=== PATIENT | female | born 1995 | race Caucasian/White ===

== ENCOUNTER 2016-08-21 16:08 | Emergency (ER) | payer BC, OTHER ==
[2016-08-21 16:14] VITALS: BP 148/91
--- NOTE | 2016-08-21 16:27 | ER Document Report ---
HPI - HPI Patient complains to provider of: Left fifth toe on the bathtub Onset: Just prior to arrival Onset/Duration: Sudden Quality of pain: Throbbing Pain Level: 5 Context: 21-year-old female hit left fifth toe on the bathtub causing increased pain to her fourth and fifth toe extending into the distal metatarsals. She did not know if it was dislocated or broken. Associated Symptoms: None Exacerbated by: Movement Relieved by: Denies Similar symptoms previously: No Recently seen / treated by doctor: No - ROS ROS below otherwise negative: Yes Systems Reviewed and Negative: Yes All other systems reviewed and negative - REPRODUCTIVE Reproductive: DENIES: : - DERM Skin Color: Normal Past Medical History - General Information source: Patient - Social History Smoking Status: Never Smoker Frequency of alcohol use: None Drug Abuse: None Family History: Reviewed & Not Pertinent Patient has suicidal ideation: No Patient has homicidal ideation: No - Medical History Medical History: Negative Renal/ Medical History: Denies: Hx Peritoneal Dialysis Surgical Hx: Negative - Immunizations Immunizations up to date: Yes Hx Diphtheria, Pertussis, Tetanus Vaccination: Yes Vertical Provider Document - CONSTITUTIONAL Agree With Documented VS: Yes Exam Limitations: No Limitations General Appearance: No Apparent Distress - / - INFECTION CONTROL TRAVEL OUTSIDE OF THE [place] IN LAST 30 DAYS: No - HEENT HEENT: Normocephalic - NECK Neck: Supple - RESPIRATORY O2 Sat by Pulse Oximetry: 99 - MUSCULOSKELETAL/EXTREMETIES Musculoskeletal/Extremeties: MAEW, FROM, Tender - 5th left toe, distal MT's, no deformity or ecchymosis - NEURO Level of Consciousness: Awake, Alert - DERM Integumentary: Warm, Dry Course - Re-evaluation Re-evalutation: 08/21/16 17:29 Possible proximal fifth toe phalanx fracture per radiologist - Vital Signs Vital signs: Temp Pulse Resp BP Pulse Ox 98.0 F 95 15 148/91 H 99 08/21/16 16:12 08/21/16 16:12 08/21/16 16:12 08/21/16 16:12 08/21/16 16:12 Procedures - Immobilization Left Toe Time completed: 17:33 Pre-Proc Neuro Vasc Exam: Normal Immobilizer type: Post-op shoe, Other - keron tape Performed by: PCT Post-Proc Neuro Vasc Exam: Normal Alignment checked and good: Yes Discharge - Discharge Clinical Impression: Fracture of fifth toe, left, closed Qualifiers: Encounter type: initial encounter Qualified Code(s): S92.502A - Displaced unspecified fracture of left lesser toe(s), initial encounter for closed fracture Condition: Good Disposition: HOME, SELF-CARE Instructions: Keron Taping (toes) ([facility]), Fractured Toe ([facility]), Post-Op Shoe ([facility] ), Anti-Inflammatory Medication ([facility]) Additional Instructions: keron tape for several weeks post op shoe for severa weeks to er any concerns follow up orthopedics for healing recheck Prescriptions: Ibuprofen [Motrin 800 mg Tablet] 800 mg PO Q8HP PRN #30 tablet PRN Reason: Referrals: JUAN JOSE LAWRENCE NP [Primary Care Provider] - Follow up as needed FRANK CAMPBELL DO [ACTIVE STAFF] - Follow up as needed Scribe Attestation: 08/21/16 17:32
--- NOTE | 2016-08-21 17:11 | RADIOLOGY REPORT (SQ) ---
EXAM DESCRIPTION: FOOT LEFT COMPLETE COMPLETED DATE/TIME: 08/21/2016 4:56 pm REASON FOR STUDY: hit left 5th toe on tub, pain 4th,5th distal MT COMPARISON: None. NUMBER OF VIEWS: Three views, 4 images of the left foot and toes. LIMITATIONS: None. FINDINGS: At least 1 of the images shows potential nondisplaced proximal phalanx midshaft fracture. OTHER: Normal bone density. IMPRESSION: Potential subtle nondisplaced proximal phalanx pinky toe fracture. TECHNICAL DOCUMENTATION: JOB ID: [id number]
== END 2016-08-21 17:54 | disposition home or self-care (01) ==
LOC: ER 16:08
DX: S92.502A Displaced unspecified fracture of left lesser toe(s), initial encounter for closed fracture (principal); M79.645 Pain in left finger(s); W22.8XXA Striking against or struck by other objects, initial encounter
CPT/HCPCS: 99283

== ENCOUNTER → 2016-08-31 | Outpatient (CLI) | payer BC ==
[2016-08-31 09:55] LABS: CHOLESTEROL 181.29 mg/dL (0-200); Direct HDL 43 mg/dL (>40); TRIGLYCERIDES 167 mg/dL (<150)
[2016-08-31 10:18] LABS: DIRECT LDL 102 mg/dL (<100)
[2016-08-31 10:20] LABS: VLDL CHOLESTEROL 33.4 mg/dL (10-31)
== END ==
LOC: OD 08:58
PROVIDERS: ATTEND Internal Medicine
DX: R63.5 Abnormal weight gain (principal)
CPT/HCPCS: 36415; 80061; 84443

== ENCOUNTER 2019-01-15 22:43 | Outpatient (CLI) | payer BC ==
[2019-01-15 23:37] LABS: APPEARANCE,URINE CLEAR; BILIRUBIN,URINE NEGATIVE (NEGATIVE); COLOR,URINE YELLOW; GLUCOSE, URINE NEGATIVE (NEGATIVE); KETONES,URINE NEGATIVE (NEGATIVE); LEUKOCYTE ESTERASE,URINE NEGATIVE (NEGATIVE); NITRITE,URINE NEGATIVE (NEGATIVE); PROTEIN,URINE 100 mg/dL (NEGATIVE); URINE SPECIFIC GRAVITY 1.005; UROBILINOGEN,URINE NEGATIVE mg/dL (<2.0)
[2019-01-15 23:50] LABS: URINE AMPHETAMINES SCREEN NEGATIVE; URINE BARBITURATES SCREEN NEGATIVE; URINE BENZODIAZEPINES SCREEN NEGATIVE; URINE COCAINE SCREEN NEGATIVE; URINE MARIJUANA (THC) SCREEN NEGATIVE; URINE METHADONE SCREEN NEGATIVE; URINE PHENCYCLIDINE SCREEN NEGATIVE
[2019-01-16 00:49] LABS: UR PRO/CREAT RATIO RESULT 2.9 mg/mg (0.0-0.2); URINE CREATININE 36.9 mg/dL (16-327); URINE PROTEIN 106.5 mg/dL (<12)
[2019-01-16 01:00] LABS: ABSOLUTE EOSINOPHILS # (AUTO) 0.1 10^3/uL (0.0-0.6); ABSOLUTE LYMPHOCYTES (AUTO) 1.9 10^3/uL (0.5-4.7); ABSOLUTE MONOCYTES (AUTO) 0.8 10^3/uL (0.1-1.4); ABSOLUTE NEUT (AUTO) 9.6 10^3/uL (1.7-8.2); BASOPHILS % (AUTO) 0.2 % (0-2); EOSINOPHILS % (AUTO) 0.6 % (0-6); HEMATOCRIT 34.4 % (36.0-47.0); LYMPHOCYTES % (AUTO) 15.7 % (13-45); MEAN CORPUSCULAR HEMOGLOBIN 30.9 pg (27.0-33.4); MEAN CORPUSCULAR VOLUME 88 fl (80-97); MONOCYTES % (AUTO) 6.2 % (3-13); PLATELET COUNT 237 10^3/uL (150-450); RED BLOOD COUNT 3.89 10^6/uL (3.72-5.28); RED CELL DISTRIBUTION WIDTH 13.1 % (11.5-14.0); SEGMENTED NEUTROPHILS % (AUTO) 77.3 % (42-78); TOTAL CELLS COUNTED % (AUTO) 100 %; WHITE BLOOD COUNT 12.4 10^3/uL (4.0-10.5)
[2019-01-16 01:20] LABS: ALBUMIN 3.8 g/dL (3.5-5.0); ALKALINE PHOSPHATASE 74 U/L (38-126); ANION GAP 11 (5-19); ASPARTATE AMINO TRANSFERASE 25 U/L (14-36); BILIRUBIN,DIRECT 0.1 mg/dL (0.0-0.4); BILIRUBIN,TOTAL 0.3 mg/dL (0.2-1.3); BLOOD UREA NITROGEN 12 mg/dL (7-20); CARBON DIOXIDE 23 mmol/L (22-30); CHLORIDE 103 mmol/L (98-107); GLUCOSE 87 mg/dL (75-110); POTASSIUM 4.6 mmol/L (3.6-5.0); URIC ACID 7.5 mg/dL (2.5-6.2)
[2019-01-16] MEDS ORDERED: NIFEDIPINE 30 MG TAB.ER.24 PO ONE ×2 (01:36→02:00)
--- NOTE | 2019-01-16 02:04 | Admission Physical ---
Datetime Report Generated by CPN: 01/16/2019 02:04 CURRENT ADMISSION Chief Complaint: Uterine Contractions; Other Chief Complaint Other: elevated blood pressures Admit Impression : , Intrauterine Admit Plan: Admit to Unit; Observation/Evaluation ALLERGIES Medication Allergies: Antacid */SV/swelling (08/21/2016) OBSTETRICAL HISTORY EDC: 04/11/2019 00:00 : 5 Para: 0 PHYSICAL EXAM General: Normal HEENT: Normal Neurologic: Normal Thyroid: Normal Heart: Normal Lungs: Normal Breast: Deferred Back: Normal Abdomen: Normal Genitourinary Exam: Deferred Extremities: Normal DTRs: Normal Pelvic Type: Adequate FETUS A EGA: 27.6 Monitoring: External US FHR- Baseline: 140 Variability: Minimal - Undetectable to <=5bpm Decelerations: None FHR Category: Category II Presentation: Transverse Admit Comment: admit for blood pressure control, steroids and 24 hour urine INFORMED CONSENT Signature: with User ID: [email or web address]
[2019-01-16] MEDS ORDERED: HYDRALAZINE HCL INJ/PF 20 MG/1 ML SDV ONE (02:05)
[2019-01-16] MEDS ORDERED: BETAMET ACET/BETAMET NA INJ 6 MG/1 ML ONE ×3 (02:05→02:14)
[2019-01-16] MEDS ORDERED: HYDRALAZINE HCL INJ/PF 20 MG/1 ML SDV IV ONE (02:30)
--- NOTE | 2019-01-16 08:09 | RADIOLOGY REPORT (SQ) ---
EXAM DESCRIPTION: U/S OB LIMITED COMPLETED DATE/TIME: 01/16/2019 12:49 am REASON FOR STUDY: Cervical length for abdominal pain COMPARISON: None. TECHNIQUE: Limited transvaginal and transabdominal grayscale ultrasound for evaluation of specific r equested obstetrical parameters. LIMITATIONS: None. FINDINGS: CERVICAL LENGTH: 3.23. There is funneling. MELANIE: 11.2 cm. FHR: 149 beats per minute. PRESENTATION: Transverse. PLACENTA: Fundal in location. ANATOMY: Not assessed OTHER: No other significant findings. IMPRESSION: LIMITED OBSTETRICAL ULTRASOUND WITH MEASURED PARAMETERS DELINEATED ABOVE. Trimester of : Third trimester - 28 weeks to delivery. TECHNICAL DOCUMENTATION: JOB ID: [id number] [employer]- All Rights Reserved Reading location - IP/workstation name: [email or web address]
[2019-01-16] MEDS ORDERED: MAGNESIUM SULFATE 4 GM/100 ML RTUPB IV ONE (09:39)
[2019-01-16] MEDS ORDERED: MAGNESIUM SULFATE 20 GM/500 ML RTUINJ IV ONE (09:39)
[2019-01-16] MEDS ORDERED: BETAMET ACET/BETAMET NA INJ 6 MG/1 ML IM SCH (10:00)
--- NOTE | 2019-01-16 10:11 | PDOC TRANSFER SUMMARY ---
General Admission Date/PCP: 01/16/19 01:38 DENTON LOPEZ MD Admission Date: 01/16/19 Transfer Date: 01/16/19 Accepting Facility: [facility] Accepting Physician: Avery Resuscitation Status: Full Code - Transfer Diagnosis (1) Chronic hypertension affecting Is this a current diagnosis for this admission?: Yes Diagnosis Summary: Known Chronic hypertension with 24 hr UTP on 12/12 baseline (was done at 22wks) was 342. Hb/Hct baseline labs 10.5/30.5, AST/ALT normal and Cr 0.61 JUAN 04/11/2019 27+6ega (2) Severe pre-eclampsia Is this a current diagnosis for this admission?: Yes Diagnosis Summary: Pt presented at approximately 0100 this am with severe range BPs and epigastric pain. She was given IV hydralazine and epigastric pain imrpoved. US done and cervical length 3.2 with mild funneling per report. Pt with improved BPs also. However edemetous including facial edema, 3 + DTRs, no clonus. However appears somewhat hemoconcentrated with normal AST/ALT but increased Uric acid. Platlets normal BPs improved. No RUQ US done. Upon taking over this patient this am, noted celestone already given but magnesium not started. Plan for magnesium sulfate and to continue enroute. labetolol 200mg BID po continue Reviewed transfer needed with patient and need for transfer for baby and mom. Spoke with Dr. Berna Meraz who also agreed with transfer and asked that notify MFM when she arrives at [facility]. - Transfer Medications Home Medications: Labetalol HCl [Normodyne 200 mg Tablet] 200 mg PO BID 01/15/19 No122/Iron/Folic Acid [ Multi Tablet] 1 each PO DAILY 01/15/19 Promethazine HCl [Phenergan 25 mg Tablet] 25 mg PO TID 01/15/19 Transfer Medications: Current Medications Betamethasone Acet/Betameth SodPhos (Celestone Inj 6 Mg/1 Ml) 12 mg IM DAILY MILADY Stop: 02/15/19 09:59 - Allergies Allergies/Adverse Reactions: Antacid * [Antacid] Allergy (Severe, Verified 08/21/16 16:11) swelling - Diet/Activity Discharge Diet: As Tolerated, Other (Comments) - NPO for now Discharge Activity: Bedrest Hospital Course Hospital Course: 23yo at 27+6ega presented at approximately 0100 this am with severe range BPs and epigastric pain. She was given IV hydralazine and epigastric pain imrpoved. US done and cervical length 3.2 with mild funneling per report. Pt with improved BPs also. However edemetous including facial edema, 3 + DTRs, no clonus. However appears somewhat hemoconcentrated with normal AST/ALT but increased Uric acid. Platlets normal BPs improved. No RUQ US done. Upon taking over this patient this am, noted celestone already given but magnesium not started. Plan for magnesium sulfate and to continue enroute. labetolol 200mg BID po continue Reviewed transfer needed with patient and need for transfer for baby and mom. Spoke with Dr. Berna Meraz who also agreed with transfer and asked that notify MFM when she arrives at [facility]. Physical Exam Vital Signs: Intake & Output 01/15/19 01/16/19 01/17/19 06:59 06:59 06:59 Weight 89.4 kg General appearance: PRESENT: no acute distress, well-developed, well-nourished Respiratory exam: PRESENT: clear to auscultation jesi. ABSENT: rales, rhonchi, wheezes Cardiovascular exam: PRESENT: RRR. ABSENT: diastolic murmur, rubs, systolic murmur Pulses: PRESENT: normal dorsalis pedis pul GI/Abdominal exam: PRESENT: normal bowel sounds, soft. ABSENT: distended, guarding, mass, organolmegaly, rebound, tenderness Rectal exam: PRESENT: deferred Extremities exam: PRESENT: full ROM, +2 edema Musculoskeletal exam: PRESENT: other - 3+ DTRs Neurological exam: PRESENT: alert, awake, oriented to person, oriented to place, oriented to time, oriented to situation, CN II-XII grossly intact. ABSENT: motor sensory deficit Psychiatric exam: PRESENT: appropriate affect, normal mood. ABSENT: homicidal ideation, suicidal ideation Skin exam: PRESENT: dry, intact, warm. ABSENT: cyanosis, rash Results Laboratory Results: 01/16/19 00:49 01/16/19 00:49 01/15/19 01/16/19 01/16/19 22:55 00:49 00:49 WBC 12.4 H RBC 3.89 Hgb 12.0 Hct 34.4 L MCV 88 MCH 30.9 MCHC 35.0 RDW 13.1 Plt Count 237 Seg Neutrophils % 77.3 Sodium 136.8 L Potassium 4.6 Chloride 103 Carbon Dioxide 23 Anion Gap 11 BUN 12 Creatinine 0.72 Est GFR ( Amer) > 60 Glucose 87 Uric Acid 7.5 H Calcium 11.0 H Total Bilirubin 0.3 AST 25 Alkaline Phosphatase 74 Total Protein 7.0 Albumin 3.8 Urine Color YELLOW Urine Appearance CLEAR Urine pH 8.0 Ur Specific [place] 1.005 Urine Protein 100 H Urine Glucose (UA) NEGATIVE Urine Ketones NEGATIVE Urine Blood NEGATIVE Urine Nitrite NEGATIVE Ur Leukocyte Esterase NEGATIVE Urine WBC (Auto) 1 Urine RBC (Auto) 0 Impressions: Obstetrics Ultrasound 01/16/19 00:00 IMPRESSION: LIMITED OBSTETRICAL ULTRASOUND WITH MEASURED PARAMETERS DELINEATED ABOVE. Trimester of : Third trimester - 28 weeks to delivery. Status: Imported from PACS Plan Discharge Plan: Transfer to [facility]. Dr Varela accepting. Dr Meraz aware. Time Spent: Greater than 30 Minutes
== END 2019-01-16 10:50 | disposition home or self-care (01) ==
LOC: LC 22:43 → UNDOADMOB 01-16 01:38 → LR 01-16 01:38 → LC 01-16 10:50 → UNDODISOB 01-16 10:50
PROVIDERS: ATTEND Obstetrics & Gynecology
PROC: 4A1HXCZ Monitoring of Products of Conception, Cardiac Rate, External Approach (ICD-10-PCS; principal; 2019-01-15)
DX: O11.2 Pre-existing hypertension with pre-eclampsia, second trimester (principal); O10.912 Unspecified pre-existing hypertension complicating pregnancy, second trimester; Z3A.27 27 weeks gestation of pregnancy; Z88.8 Allergy status to other drugs, medicaments and biological substances
CPT/HCPCS: 59899; 94760; 36415; 83615; 84156; 84550; 82570; 85025; 80053; 81001; 80307; 76815; G0378; G0379; J3475 ×2; J0360; J0702